=== PATIENT | female | born 1990 | race African-American/Black ===

== ENCOUNTER 2019-10-27 12:10 | Emergency (ER) | payer BC ==
[~2019-10-27] VITALS: Ht 165.1 cm; Wt 61.2 kg
--- NOTE | 2019-10-27 11:56 | NUR ---
ED Nurse Note: sister's # [phone] Izabel room mate # [phone] Adore
--- NOTE | 2019-10-27 11:58 | NUR ---
ED Nurse Note: Pt BIBA for seizure post ictal. She has history of seizures and takes keppra medication. Her seizure was witnessed by roommate. She is alert adn orientedx3, drowsy. Pt is set up on monitor. Pt lives in apt.
[2019-10-27 12:06] VITALS: BP 124/76
[2019-10-27] MEDS ORDERED: levETIRAcetam 500mg/NS100ml 110 ML IV ONE (12:15)
[2019-10-27 12:55] LABS: HEMATOCRIT 43.6 % (37.0-47.0); HEMOGLOBIN 13.1 G/DL (12.0-16.0); MEAN CORPUSCULAR VOLUME 91 FL (80-99); PLATELET COUNT 167 K/UL (150-450); RED BLOOD COUNT 4.79 M/UL (4.20-5.40); RED CELL DISTRIBUTION WIDTH 16.7 % (11.6-14.8); WHITE BLOOD COUNT 3.1 K/UL (4.8-10.8)
[2019-10-27 13:05] LABS: ANION GAP 14 mmol/L (5-15); BLOOD UREA NITROGEN 31 mg/dL (7-18); CALCIUM 9.1 MG/DL (8.5-10.1); CARBON DIOXIDE 28 MMOL/L (21-32); CHLORIDE 92 MMOL/L (98-107); CREATININE 6.7 MG/DL (0.55-1.30); POTASSIUM 3.5 MMOL/L (3.5-5.1); SODIUM 134 MMOL/L (136-145)
[2019-10-27 13:10] LABS: ALANINE AMINOTRANSFERASE 7 U/L (12-78); ALBUMIN 3.8 G/DL (3.4-5.0); ALBUMIN/GLOBULIN RATIO 0.8 (1.0-2.7); ALKALINE PHOSPHATASE 280 U/L (46-116); ASPARTATE AMINO TRANSFERASE 9 U/L (15-37); BILIRUBIN,TOTAL 0.4 MG/DL (0.2-1.0)
--- NOTE | 2019-10-27 13:34 | Diagnostic Imaging Report ---
Indication: Seizure Technique: Continuous helical CT scanning of the head was performed utilizing automated exposure control without intravenous contrast material. Axial and coronal reconstructions were obtained. Comparison: None CT dose: Total DLP 1045.5 mGycm; CTDI vol 53.4 mGy Findings: There is no acute intracranial hemorrhage. No significant mass effect or shift of midline structures. There is focal low attenuation in the left frontal lobe which may represent sequela of chronic ischemia or chronic injury, including postoperative change. There is evidence of prior left-sided craniotomy is with indwelling surgical device in the left middle cranial fossa which tracks superiorly and medially. Correlation with surgical history recommended. There is some encephalomalacia in the middle cranial fossa on the left, likely postoperative in etiology. Visualized mastoid air cells and paranasal sinuses are clear. IMPRESSION: No definite noncontrast CT evidence of acute intracranial abnormality. Evidence of prior left-sided craniotomy with indwelling surgical device/material in the left middle cranial fossa. Correlation with surgical history recommended. Comparison study will be helpful to assess for interval changes. Focal encephalomalacia in the left frontal lobe which may represent sequela of chronic infarct or injury (including prior surgery). The CT scanner at [facility] is accredited by the [employer] and the scans are performed using protocols designed to limit radiation exposure to as low as reasonably achievable to attain images of sufficient resolution adequate for diagnostic evaluation.
--- NOTE | 2019-10-27 14:13 | NUR ---
ER DISCHARGE NOTE: Patient is cleared to be discharged per ERMD, pt is aox4, on room air, with stable vital signs. pt was given dc and prescription instructions, pt was able to verbalize understanding, pt id band and iv site removed without complications. pt is able to ambulate with steady gait. pt took all belongings. Pt educated regarding seizures.
[2019-10-27 14:14] VITALS: BP 120/73
--- NOTE | 2019-10-27 15:38 | Emergency Room Report ---
History of Present Illness General Chief Complaint: Seizure Source: Patient Present Illness HPI 29-year-old female presents status post seizure. Witnessed seizure at home. Patient is postictal upon arrival. Per EMS patient has history of seizures. History of brain aneurysm. Recent surgery for that. Renal disease on dialysis. Got dialysis today. Patient states that her Keppra dosage was recently reduced. States she feels okay at this time. Denies any pain. Denies any fevers or chills. No other aggravating relieving factors. Denies any other associated symptoms Allergies: Coded Allergies: No Known Allergies (Unverified , 10/27/19) COVID-19 Screening Contact w/high risk pt: No Recent Travel to affected area: No Experienced COVID-19 symptoms?: No COVID-19 Testing performed VALUE ENGINEER: No Patient History Past Medical History: none Past Surgical History: none Pertinent Family History: none Social History: Denies: smoking, alcohol use, drug use Now: No Immunizations: UTD Reviewed Nursing Documentation: PMH: Agreed; PSxH: Agreed Nursing Documentation-PMH Hx Seizures: Yes Review of Systems All Other Systems: negative except mentioned in HPI Physical Exam Vital Signs Date Time Temp Pulse Resp B/P (MAP) Pulse Ox O2 Delivery O2 Flow Rate FiO2 10/27/19 11:52 97.9 20 118/83 (95) 99 Room Air 10/27/19 12:01 19 99 Sp02 EP Interpretation: reviewed, normal General Appearance: no apparent distress, alert, GCS 15, non-toxic Head: normocephalic, atraumatic Eyes: bilateral eye normal inspection, bilateral eye PERRL ENT: hearing grossly normal, normal pharynx, no angioedema, normal voice Neck: full range of motion, supple/symm/no masses Respiratory: chest non-tender, lungs clear, normal breath sounds, speaking full sentences Cardiovascular #1: regular rate, rhythm, no edema Cardiovascular #2: 2+ carotid (R), 2+ carotid (L), 2+ radial (R), 2+ radial (L) , 2+ dorsalis pedis (R), 2+ dorsalis pedis (L) Gastrointestinal: normal bowel sounds, non tender, soft, non-distended, no guarding, no rebound Rectal: deferred Genitourinary: normal inspection, no CVA tenderness Musculoskeletal: back normal, normal range of motion, gait/station normal, non- tender Neurologic: alert, motor strength/tone normal, oriented x3, sensory intact, responsive, speech normal Psychiatric: judgement/insight normal, memory normal, mood/affect normal, no suicidal/homicidal ideation Reflexes: 3+ bicep (R), 3+ bicep (L), 3+ tricep (R), 3+ tricep (L), 3+ knee (R) , 3+ knee (L) Lymphatic: no adenopathy Medical Decision Making Diagnostic Impression: Primary Impression: Seizure disorder Additional Impression: ESRD needing dialysis ER Course Hospital Course 29-year-old F presents to ED status post seizure. Differential diagnosis includes- breakthrough seizure, alcohol abuse, noncompliance with medication Clinical course Patient placed on stretcher. Initial history and physical I ordered labs, IV fluids, Keppra, EKG, CT brain Labs- BUN/Cr elevated, K ok,, no leukocytosis, hemoglobin/hematocrit stable EKG - NSR, no acute ischemic changes interpreted by me CT Brain ok I discussed findings with patient. No focal deficits. Alert oriented x3. Vital stable in ED. Discussed with Dr. Pandya sees the patient at [facility]. He also agrees that patient be discharged home. Patient prefers to be discharged. Safe for discharge for close outpatient follow-up. Patient will readjust her Keppra dosage back to her prior dosage. Diagnosis - seizure disorder, ESRD on dialysis stable and discharged to home. Followup with PMD. Return to ED if symptoms recur or worsen Labs Test 10/27/19 12:23 White Blood Count 3.1 K/UL (4.8-10.8) Red Blood Count 4.79 M/UL (4.20-5.40) Hemoglobin 13.1 G/DL (12.0-16.0) Hematocrit 43.6 % (37.0-47.0) Mean Corpuscular Volume 91 FL (80-99) Mean Corpuscular Hemoglobin 27.3 PG (27.0-31.0) Mean Corpuscular Hemoglobin Concent 29.9 G/DL (32.0-36.0) Red Cell Distribution Width 16.7 % (11.6-14.8) Platelet Count 167 K/UL (150-450) Mean Platelet Volume 7.7 FL (6.5-10.1) Neutrophils (%) (Auto) % (45.0-75.0) Lymphocytes (%) (Auto) % (20.0-45.0) Monocytes (%) (Auto) % (1.0-10.0) Eosinophils (%) (Auto) % (0.0-3.0) Basophils (%) (Auto) % (0.0-2.0) Differential Total Cells Counted 100 Neutrophils % (Manual) 50 % (45-75) Lymphocytes % (Manual) 44 % (20-45) Monocytes % (Manual) 5 % (1-10) Eosinophils % (Manual) 0 % (0-3) Basophils % (Manual) 1 % (0-2) Band Neutrophils 0 % (0-8) Platelet Estimate Adequate Platelet Morphology Normal Red Blood Cell Morphology Normal Sodium Level 134 MMOL/L (136-145) Potassium Level 3.5 MMOL/L (3.5-5.1) Chloride Level 92 MMOL/L (98-107) Carbon Dioxide Level 28 MMOL/L (21-32) Anion Gap 14 mmol/L (5-15) Blood Urea Nitrogen 31 mg/dL (7-18) Creatinine 6.7 MG/DL (0.55-1.30) Estimat Glomerular Filtration Rate 7.3 mL/min (>60) Glucose Level 96 MG/DL (74-106) Calcium Level 9.1 MG/DL (8.5-10.1) Total Bilirubin 0.4 MG/DL (0.2-1.0) Aspartate Amino Transf (AST/SGOT) 9 U/L (15-37) Alanine Aminotransferase (ALT/SGPT) 7 U/L (12-78) Alkaline Phosphatase 280 U/L (46-116) Total Protein 8.4 G/DL (6.4-8.2) Albumin 3.8 G/DL (3.4-5.0) Globulin 4.6 g/dL Albumin/Globulin Ratio 0.8 (1.0-2.7) CT/MRI/US Diagnostic Results CT/MRI/US Diagnostic Results : Imaging Test Ordered: CT head Impression Procedure: CT Head no Contrast Indication: Seizure Technique: Continuous helical CT scanning of the head was performed utilizing automated exposure control without intravenous contrast material. Axial and coronal reconstructions were obtained. Comparison: None CT dose: Total DLP 1045.5 mGycm; CTDI vol 53.4 mGy Findings: There is no acute intracranial hemorrhage. No significant mass effect or shift of midline structures. There is focal low attenuation in the left frontal lobe which may represent sequela of chronic ischemia or chronic injury, including postoperative change. There is evidence of prior left-sided craniotomy is with indwelling surgical device in the left middle cranial fossa which tracks superiorly and medially. Correlation with surgical history recommended. There is some encephalomalacia in the middle cranial fossa on the left, likely postoperative in etiology. Visualized mastoid air cells and paranasal sinuses are clear. IMPRESSION: No definite noncontrast CT evidence of acute intracranial abnormality. Evidence of prior left-sided craniotomy with indwelling surgical device/ material in the left middle cranial fossa. Correlation with surgical history recommended. Comparison study will be helpful to assess for interval changes. Focal encephalomalacia in the left frontal lobe which may represent sequela of chronic infarct or injury (including prior surgery). The CT scanner at [facility] is accredited by the [employer] and the scans are performed using protocols designed to limit radiation exposure to as low as reasonably achievable to attain images of sufficient resolution adequate for diagnostic evaluation. Last Vital Signs Date Time Temp Pulse Resp B/P (MAP) Pulse Ox O2 Delivery O2 Flow Rate FiO2 10/27/19 14:14 97.9 83 18 120/73 99 Room Air 10/27/19 12:01 99 Status: improved Disposition: HOME, SELF-CARE Condition: Stable Referrals: Milton Pandya MD Patient Instructions: Seizure, Adult Marvel Person MD Oct 27, 2019 15:38
== END 2019-10-27 14:17 | disposition home or self-care (01) ==
LOC: EDBD 12:10 → EMR 13:19
DX: G40.909 Epilepsy, unspecified, not intractable, without status epilepticus (principal); N18.6 End stage renal disease; Z99.2 Dependence on renal dialysis; Z79.899 Other long term (current) drug therapy
CPT/HCPCS: 36415; 70450; 80053; 82962; 85007; 85025; 93005; 96374; 99284; J1953